=== PATIENT | female | born 1955 | race Caucasian/White ===

== ENCOUNTER 2017-08-17 12:59 | Emergency (ER) | payer MEDICARE, BC, OTHER | END 2017-08-17 15:40 | disposition home or self-care (01) | LOC: E/R 12:59 | DX: H92.01 Otalgia, right ear (principal); J02.9 Acute pharyngitis, unspecified; I10 Essential (primary) hypertension; E11.9 Type 2 diabetes mellitus without complications; Z79.84 Long term (current) use of oral hypoglycemic drugs | CPT/HCPCS: 71045; 99283-25 ==

== ENCOUNTER 2017-08-20 11:42 | Emergency (ER) | payer MEDICARE, BC ==
[2017-08-20] MEDS ORDERED: FLUTICASONE 0.05% 16 GM NAS SPRAY NASAL (13:00)
== END 2017-08-20 13:24 | disposition home or self-care (01) ==
LOC: FTE 11:42
DX: H91.91 Unspecified hearing loss, right ear (principal); H93.11 Tinnitus, right ear; I10 Essential (primary) hypertension; E11.9 Type 2 diabetes mellitus without complications; R93.0 Abnormal findings on diagnostic imaging of skull and head, not elsewhere classified; Z79.84 Long term (current) use of oral hypoglycemic drugs
CPT/HCPCS: 70450; 70480; 99285-25

== ENCOUNTER 2018-01-06 18:53 | Emergency (ER) | payer MEDICARE, BC ==
[2018-01-06] MEDS: KETOROLAC 60 MG INJ IM (21:33)
[2018-01-06 21:37] LABS: URINE PH (Dip) POC 6.5 (5.0-8.5)
[2018-01-06 21:37] LABS: URINE BLOOD (Dip) POC 2+ (NEGATIVE); URINE KETONES (Dip) POC Negative (NEGATIVE); URINE LEUKOCYTE EST (Dip) POC Negative (NEGATIVE); URINE NITRITE (Dip) POC Positive (NEGATIVE); URINE TOTAL PROTEIN POC Trace (NEGATIVE)
== END 2018-01-06 22:10 | disposition home or self-care (01) ==
LOC: FTE 18:53
DX: M25.512 Pain in left shoulder (principal); N39.0 Urinary tract infection, site not specified; I10 Essential (primary) hypertension; E11.9 Type 2 diabetes mellitus without complications; Z79.84 Long term (current) use of oral hypoglycemic drugs
CPT/HCPCS: 81003; 96372; 99284-25